=== PATIENT | female | born 1975 | race Caucasian/White ===

== ENCOUNTER 2016-10-10 12:41 | Emergency (ER) | payer OTHER ==
--- NOTE | 2016-10-10 13:33 | XRAY Preliminary Report ---
Exam: XR Chest 2 View PA/LAT IMPRESSION: Small infiltrate versus artifact left base. Follow-up is recommended to confirm clearing. [facility] SITE ID: [id number]
--- NOTE | 2016-10-10 13:36 | XRAY Report ---
EXAM: CHEST RADIOGRAPHY EXAM DATE: 10/10/2016 01:26 PM. CLINICAL HISTORY: Chest pain x 4 days. COMPARISON: None. TECHNIQUE: 2 views. FINDINGS: Lungs/Pleura: Mild interstitial prominence. Patchy infiltrate versus artifact in left lateral lung ba se. No consolidation, effusion, or pneumothorax. Mediastinum: The overall heart size upper limit of normal. Upper lobe vessels not distended. Other: Mild degenerative changes. IMPRESSION: Small infiltrate versus artifact left base. Follow-up is recommended to confirm clearing. [facility] Referring Provider Line: [phone] SITE ID: [id number]
--- NOTE | 2016-10-10 16:26 | ED Physician Documentation ---
History of Present Illness - Stated complaint Stated Complaint: CHEST PX - Chief complaint Chief Complaint: Cardiac - Additonal information Additional information: hx from pt sharp ant chest pain for 4 days worse with moving but not tender to palpate no fever cough no abd pain no leg pain or swelling, no travel or immobilzation no smoking no OCP helping mom move but does not think she lifted or strained herself too much Review of Systems Constitutional: denies: Fever, Chills Throat: denies: Sore throat Cardiac: reports: Chest pain / pressure Respiratory: denies: Cough GI: denies: Abdominal Pain, Nausea, Vomiting : denies: Now EGA (denies) Musculoskeletal: denies: Extremity swelling Endocrine: denies: Easy bruising / bleeding Immunocompromised: denies: Immunocompromised PD PAST MEDICAL HISTORY - Past Medical History Past Medical History: No - Past Surgical History Past Surgical History: No - Present Medications Home Medications: Ambulatory Orders Medication Instructions Recorded Confirmed Citalopram [CeleXA] 10 mg PO DAILY 10/10/16 10/10/16 - Allergies Allergies/Adverse Reactions: Allergies Allergy/AdvReac Type Severity Reaction Status Date / Time codeine Allergy Rash Verified 10/10/16 13:10 - Social History Does the pt smoke?: No Smoking Status: Never smoker Does the pt drink ETOH?: No Does the pt have substance abuse?: No PD ED PE NORMAL - Vitals Vital signs reviewed: Yes - General General: Alert and oriented X 3 - HEENT HEENT: PERRL - Neck Neck: Supple, no meningeal sign - Cardiac Cardiac: RRR, Other (no chest wall TTP no rash) - Respiratory Respiratory: No respiratory distress, Clear bilaterally - Abdomen Abdomen: Soft, Non tender - Derm Derm: Normal color - Extremities Extremities: No deformity, Normal ROM s pain, No edema, No calf tenderness / cord - Neuro Neuro: Alert and oriented X 3 Results - Vitals Vitals: Vital Signs - 24 hr 10/10/16 13:06 Temperature 36.5 C Heart Rate 78 Respiratory 16 Rate Blood Pressure 125/83 H O2 Saturation 98 Oxygen O2 Source Room air - EKG (time done) 1304 Rate: Rate (enter#) (73) Rhythm: NSR [place]: Normal Intervals: Normal MA Ischemia: Normal ST segments - Labs Labs: Laboratory Tests 10/10/16 15:48 Troponin I < 0.04 - Rads (name of study) CXR Radiology: See rad report (per rad small infiltrate vbs artifact L base - pt has no fever cough and lungs clear and I dont see the infiltrate on CXR doubt pna, mediastinum sharp and clear no cap no effusion) PD MEDICAL DECISION MAKING - ED course ED course: neg EKG and trop after 4 days of pain doubt ACS nl mediastinum and pain worse with miocing doubt dissection and do not feel radiation of CT is indicated at this time PERC neg will reassure and dc - likely muscular after moving Departure - Departure Disposition: 01 Home, Self Care Clinical Impression: Chest pain Qualifiers: Chest pain type: unspecified Qualified Code(s): R07.9 - Chest pain, unspecified Condition: Good Instructions: ED Chest Pain Atypical Unkn Cause Comments: The EKG, xray and blood test for your heart are all fine. - it does not look like a heart attack Your exam does not indicate a blood clot in your lungs Your xray does not show an aneurysm of your aorta It is possible the pain in the the wall of your chest since it seems worse with moving, though it is not tender to palpate I think it is OK for you to go home. I recommend an anti-inflammatory such as motrin or aleve for the pain Follow up with your PMD if not better in a week Return to the ER if worse Forms: Activity restrictions
[2016-10-10 16:52] VITALS: BP 129/86
== END 2016-10-10 16:51 | disposition home or self-care (01) ==
LOC: ED 12:41
DX: R07.9 Chest pain, unspecified (principal); I51.7 Cardiomegaly
CPT/HCPCS: 71020; 84484; 93005; 99282; 99284